=== PATIENT | female | born 1935 | race Caucasian/White ===

== ENCOUNTER → 2023-02-12 | Outpatient (CLI) | payer SELFPAY ==
--- NOTE | 2023-02-12 08:25 | MRI_ITS ---
INDICATION: R TINNITUS, HEARING LOSS, dizziness EXAMINATION: MRI - MR Attn IACs and/or Temporal Bones WO/W Contrast TECHNIQUE: Multiplanar and multisequence MR images of the brain were obtained with gadolinium. IV Contrast Dosage and Agent: COMPARISON: None. FINDINGS: BRAIN PARENCHYMA: Moderate cortical and central atrophy. On the FLAIR and inversion recovery series there is extensive increased signal intensity in the periventricular white matter extending to the subcortical white matter both hemispheres consistent with severe chronic ischemic change. IACs normal pre and postcontrast. No MRI evidence of hemorrhage. No evidence of acute infarct. No intracranial mass or mass effect. There is preservation of the quick/white matter interface. Normal sella turcica, pituitary gland, infundibular stalk, optic chiasm and hypothalamus. The internal auditory canals are patent. Posterior fossa structures demonstrate mild cerebellar atrophy. CSF SPACES: Appropriate for age. No hydrocephalus. Basal cisterns are patent. VASCULAR SYSTEM: Normal flow voids in the major intracranial circulation. CALVARIUM, SKULL BASE, PARANASAL SINUSES AND MASTOID AIR CELLS: Clear. No expansile changes. ORBITS: Both globes, extraocular muscles, optic nerves and retrobulbar fat appear unremarkable. MRI/Brain W/WO Contrast IMPRESSION: Moderate cortical and central atrophy. Severe chronic microvascular ischemic change. Mild cerebellar atrophy. Electronically Signed: Edwin Ibarra MD, DORY at 10:16 EDT ,
[2023-02-12 08:59] LABS: CREATININE FINGERSTICK < 0.9 mg/dL (0.55-1.02); EGFR FINGERSTICK > 60.0000 mL/min (>60)
== END | disposition home or self-care (01) ==
PROVIDERS: PCP Family Medicine; Referring Provider Otolaryngology; Visit Provider Otolaryngology
DX: H93.11 Tinnitus, right ear (principal); H91.91 Unspecified hearing loss, right ear
CPT/HCPCS: 70553; A9575